=== PATIENT | female | born 1955 | race Caucasian/White ===

== ENCOUNTER 2019-01-30 07:59 | Day surgery (SDC) | payer BC ==
[2019-01-30] MEDS ORDERED: Dextrose 5%-Lactated Ringers 1,000 ML IV SCH (08:30)
[2019-01-30] MEDS ORDERED: Midazolam 1 MG/ML 2 ML SDV ONE (09:10)
[2019-01-30] MEDS ORDERED: Propofol 200 MG/20 ML SDV ONE (09:10)
[2019-01-30] MEDS ORDERED: fentaNYL 100 MCG/2 ML SDV ONE (09:10)
--- NOTE | 2019-02-05 11:49 | OR ---
DATE OF PROCEDURE: 01/30/2019 PREOPERATIVE DIAGNOSES: 1. Personal history of colon polyps. 2. Family history of colon carcinoma. POSTOPERATIVE DIAGNOSES: 1. Normal colonoscopic examination. 2. No recurrent neoplastic disease was identified. OPERATIVE PROCEDURE: Flexible colonoscopy. ANESTHESIA: IV sedation. INDICATION FOR PROCEDURE: This is a 63-year-old presenting with a family history of colon carcinoma as well as a personal history of colon polyps for a followup colonoscopy. The plan is to proceed with a colonoscopy with biopsies and/or polypectomy as indicated. Potential risks, including bleeding and perforation, were discussed, and the patient wishes to proceed. DETAILS OF PROCEDURE: The patient was taken to the operating room and placed in a left lateral decubitus position. IV sedation was administered, after which an initial digital rectal exam was performed and was unremarkable. A colonoscope was then passed into the rectum with retroflexion revealing an uncomplicated hemorrhoidal column. The scope was then eventually passed to the level of the cecum. The prep was quite good with only a small amount of liquid stool present. To that level, there was no diverticular disease, no areas of colitis, and no polyps or other signs of neoplasia. The scope was then withdrawn, the above findings reconfirmed, and the procedure concluded. The patient was taken to the recovery room in satisfactory condition. There were no evident complications. Recommendation would be to repeat the colonoscopy in 5 years given the personal and family history of colonic neoplasia. Joseph Galvez MD /[id number]
== END 2019-01-30 10:58 | disposition home or self-care (01) ==
LOC: JP.SDS 07:59
PROVIDERS: ATTEND Surgery
DX: Z12.11 Encounter for screening for malignant neoplasm of colon (principal); K64.9 Unspecified hemorrhoids; K21.9 Gastro-esophageal reflux disease without esophagitis; K75.4 Autoimmune hepatitis; Z88.1 Allergy status to other antibiotic agents; Z80.0 Family history of malignant neoplasm of digestive organs; Z86.010 Personal history of colon polyps
CPT/HCPCS: 45378; J2250; J2704; J3010; J7042

== ENCOUNTER 2019-05-02 07:28 | Day surgery (SDC) | payer MEDICARE, OTHER ==
[~2019-05-02 07:28] MED LIST: Bupivacaine 0.5% 50 ML MDV ONE
[2019-05-02] MEDS ORDERED: Nozin Nasal Sanitizer NASBOTH ONE (07:45)
[2019-05-02] MEDS ORDERED: fentaNYL 100 MCG/2 ML SDV ONE (07:59)
[2019-05-02] MEDS ORDERED: Midazolam 1 MG/ML 2 ML SDV ONE (07:59)
[2019-05-02] MEDS ORDERED: Propofol 200 MG/20 ML SDV ONE (07:59)
[2019-05-02] MEDS ORDERED: Bupivacaine 0.5% 30 ML SDV ONE (08:00)
[2019-05-02] MEDS ORDERED: Lactated Ringers 1,000 ML IV SCH (08:30)
[2019-05-02] MEDS ORDERED: ceFAZolin 2 GM in Sodium Chloride 0.9% 50 ML IV ONE (09:00)
[2019-05-02] MEDS ORDERED: Ondansetron 4 MG/2 ML SDV IVPUSH ONE (11:54)
--- NOTE | 2019-05-04 12:25 | OR ---
DATE OF PROCEDURE: 05/02/2019 SURGEON: Altaf Pena MD PREOPERATIVE DIAGNOSIS: Impingement, left shoulder, possible rotator cuff tear. POSTOPERATIVE DIAGNOSES: 1. Impingement, left shoulder. 2. Minor partial-thickness tear, supraspinous. PROCEDURE: Arthroscopy, left shoulder, with debridement of partial-thickness tear and subacromial decompression with acromioplasty. ANESTHESIA: Interscalene block with sedation. INDICATIONS: Bradley is a very pleasant 63-year-old female who has had persistent left shoulder pain for the past several months. She has failed conservative treatment. Examination and MRI are consistent with a left shoulder impingement and rotator cuff tendinopathy, and probable small partial-thickness tear. Options for nonoperative versus operative treatment were discussed at some length. She now presents for left shoulder scope with subacromial decompression, repair of rotator cuff as necessary. Risks, benefits, potential complications of the procedure were discussed. DESCRIPTION OF PROCEDURE: After adequate anesthesia was obtained, patient was placed in a lateral decubitus position, and secured with a hernandez bag positioner. Left shoulder and arm were then prepped and draped in a sterile fashion. Approximately 10 pounds of traction was placed using a shoulder traction unit. A standard posterior portal was established. Glenohumeral joint was inspected. This revealed no evidence of articular cartilage damage to the humeral head or glenoid. The glenoid labrum was intact. Biceps tendon was intact. The subscapularis showed some minor tendinopathy. Undersurface of the rotator cuff was visualized and a small partial-thickness tear with some fraying was noted along the anterior edge of the supraspinatus. The remainder of the cuff was intact. Anterior portal was established and the small frayed portion of the supraspinous was lightly debrided with a shaver. No other abnormalities were identified. Scopes withdrawn and placed into the subacromial space. Mild inflammation was noted within the subacromial bursa. Lateral portal was established. Moderate impingement noted against the underside of the coracoacromial ligament. No evidence of bursal sided tear of the cuff was noted. The coracoacromial ligament was taken off the underside of the acromion using the radiofrequency ablation wand. Acromioplasty was then performed removing the anterolateral aspect of the underside of the acromion and bevelling this back posteriorly. Roughly 4 mm of acromion was resected. The scope was switched from the posterior portal to the lateral portal. The rotator cuff was again visualized without evidence of tear. Shoulder was drained. Scope was withdrawn. Port sites were closed in a standard fashion. Steri-Strips were applied. Sterile dressing was then placed. She tolerated procedure well and no complications, taken from the operating room in stable condition. Altaf Pena MD /[id number]
== END 2019-05-02 12:55 | disposition home or self-care (01) ==
LOC: JP.SDS 07:28
PROVIDERS: ATTEND Specialist
DX: M75.112 Incomplete rotator cuff tear or rupture of left shoulder, not specified as traumatic (principal); M75.42 Impingement syndrome of left shoulder; M75.52 Bursitis of left shoulder; M81.0 Age-related osteoporosis without current pathological fracture; K21.9 Gastro-esophageal reflux disease without esophagitis; Z88.1 Allergy status to other antibiotic agents; Z79.899 Other long term (current) drug therapy
CPT/HCPCS: 36415; 85027; A9270-GY; C1713; J0690; J2250; J2405; J2704; J3010; J3490; J7050; J7120

== ENCOUNTER 2020-08-13 05:54 | Day surgery (SDC) | payer MEDICARE, OTHER ==
[2020-08-13] MEDS ORDERED: ceFAZolin 2 GM in Premix Bag 1 BAG IV ONE (06:05)
[2020-08-13] MEDS ORDERED: Nozin Nasal Sanitizer NASBOTH ONE (06:05)
[2020-08-13] MEDS ORDERED: Lactated Ringers 1,000 ML IV SCH (06:45)
[2020-08-13] MEDS ORDERED: Propofol 200 MG/20 ML SDV ONE (07:22)
[2020-08-13] MEDS ORDERED: fentaNYL 100 MCG/2 ML SDV ONE ×2 (07:23→08:27)
[2020-08-13] MEDS ORDERED: Midazolam 1 MG/ML 2 ML SDV ONE (07:23)
[2020-08-13] MEDS ORDERED: Bupivacaine 0.5% 30 ML SDV ONE (07:24)
[2020-08-13] MEDS ORDERED: Ondansetron 4 MG/2 ML SDV ONE (08:32)
--- NOTE | 2020-08-18 20:38 | OR ---
DATE OF PROCEDURE: 08/13/2020 SURGEON: Altaf Pena MD PREOPERATIVE DIAGNOSES: Impingement, right shoulder, possible rotator cuff tear. POSTOPERATIVE DIAGNOSES: 1. Impingement, right shoulder. 2. Partial subscapularis tear. 3. Tendinopathy rotator cuff with partial-thickness tear. 4. Impingement with bursitis. PROCEDURES: Arthroscopy, right shoulder with subacromial decompression acromioplasty and repair of rotator cuff. [employer]: BARTOLO De Leon. ANESTHESIA: Interscalene block with sedation. INDICATIONS: Bradley is a 64-year-old female with a history of persistent right shoulder pain. She has difficulty with overhead reaching and lifting. Examination and imaging are consistent with impingement and significant rotator cuff arthropathy with probable partial thickness or small full-thickness tear. She has not had significant improvement with nonoperative treatment. Risks, benefits, potential complications of the procedure were discussed. DESCRIPTION OF PROCEDURE: After adequate anesthesia was obtained, the patient was placed in lateral decubitus position and secured with a hernandez bag positioner. Right shoulder and arm were then prepped and draped in a sterile fashion and 10 pounds of traction was placed in the shoulder traction unit. Standard posterior portal was established, and glenohumeral joint was inspected. This revealed no significant arthritic changes of the glenoid or glenohumeral head. Glenoid labrum showed some very minor fraying. Biceps tendon was intact with some mild tendinitis at its insertion on to the labrum. Subscapularis showed a partial- thickness tear, however 75% to 80% of the tendon was still intact and no repair was attempted. The undersurface of the rotator cuff showed fraying and tendinopathy at its insertion. Spinal needle was placed through the area of tendinopathy and worst damage and a suture was then passed through this to palmira the position. Needle was withdrawn. The scope was then withdrawn and placed in the subacromial space. Lateral portal was established. A moderate amount of inflammation was noted within the subacromial space and bursa. Using a combination of shaver and radiofrequency ablation, bursa was resected for visualization. The area that was marked with the PDS suture was identified and showed some mild fraying without obvious full-thickness tear or retraction. Significant impingement noted against the coracoacromial ligament. Using a combination of shaver and ablation wand, the coracoacromial ligament was taken off the undersurface of the acromion and the anterolateral edge was delineated. A fairly significant hook was present. A elbert was then used to perform an acromioplasty removing 4 to 5 mm of the lateral acromion beveling this medially and posteriorly. Rotator cuff was again evaluated, taken through internal and external rotation with no retraction. The area that had previously been marked was palpated and showed significant thinning and the probe could easily be passed into the tendon consistent with a small full-thickness tear and a larger area of partial-thickness tear. An 11 blade was placed through the lateral portal and used to complete the partial thickness tear. Undersurface of the tendon was debrided with a shaver and the footprint was cleared of soft tissue with a shaver. A elbert was then utilized to lightly decorticate the top of the tuberosity. A Mitek Healix anchor was then placed. An Scovilleew device used to pass both sutures up through the tendon. One set of sutures was tied down in a mattress fashion. During tying of the 2nd set of sutures, the knot failed to slide down into appropriate compression and resulted in inadequate tension on the tendon and this suture was cut and removed. Set of sutures from the mattress knot was then placed through a knotless anchor which was secured into a channel in the lateral tuberosity. The suture attached to the knotless anchor was then passed through the edge of the tendon in a simple fashion and tied down for an additional point of fixation. Good approximation of the tendon was accomplished to the tuberosity. The scope was withdrawn. Port sites were closed in a standard fashion. Sterile dressing was applied. The patient tolerated procedure well. There were no complications, taken from the operating room in stable condition. Altaf Pena MD /[id number] [facility]
== END 2020-08-13 13:00 | disposition home or self-care (01) ==
LOC: JP.SDS 05:54
PROVIDERS: ATTEND Specialist
DX: M25.811 Other specified joint disorders, right shoulder (principal); M75.111 Incomplete rotator cuff tear or rupture of right shoulder, not specified as traumatic; M75.51 Bursitis of right shoulder; M81.0 Age-related osteoporosis without current pathological fracture; K21.9 Gastro-esophageal reflux disease without esophagitis; Z79.899 Other long term (current) drug therapy; Z98.890 Other specified postprocedural states
CPT/HCPCS: 29826; 29827; A9270; C1713; J0690; J2250; J2405; J2704; J3010; J3490; J7120

== ENCOUNTER 2025-02-13 08:19 | Day surgery (SDC) | payer MEDICARE ==
[2025-02-13] MEDS: Lactated Ringers 1,000 ML IV SCH (08:35)
[2025-02-13] MEDS ORDERED: fentaNYL 100 MCG/2 ML SDV ONE (09:06)
[2025-02-13] MEDS ORDERED: Propofol 200 MG/20 ML SDV ONE (09:06)
== END 2025-02-13 11:34 | disposition home or self-care (01) ==
LOC: JP.SDS 08:19
PROVIDERS: ATTEND Surgery
DX: Z12.11 Encounter for screening for malignant neoplasm of colon (principal); K63.5 Polyp of colon; I10 Essential (primary) hypertension; Z80.0 Family history of malignant neoplasm of digestive organs
CPT/HCPCS: 00811; 45380; 88305; J2704; J3010; J7120